=== PATIENT | male | born 1960 | race Caucasian/White ===

== ENCOUNTER 2021-09-15 09:45 | Emergency (ER) | payer BC ==
[2021-09-15 09:50] VITALS: TEMP 98; BMI 32.6
[2021-09-15] MEDS ORDERED: BEBTELOVIMAB (EUA) 175 MG/2 ML VIAL IVPUSH ONE (10:28)
[2021-09-15 11:50] VITALS: BP 138/84; PULSE 80
[2021-09-15 12:02] LABS: HEMATOCRIT 42.2 % (35.4-49); HEMOGLOBIN 13.6 GM/dL (11.7-16.9); MCH 24.7 pg (25.7-33.7); MCHC 32.2 g/dl (32.0-35.9); MEAN CELL VOLUME 76.6 fl (80-96); MEAN PLT VOLUME 8.4 fl (7.5-11.1); PLATELET COUNT 159 10^3/uL (134-434); RBC 5.51 M/mm3 (4.00-5.60); RDW 14.4 % (11.9-15.9); WHITE BLOOD COUNT 4.3 K/mm3 (4.0-10.0)
[2021-09-15 12:08] LABS: INR 1.31 (0.83-1.09); PROTHROMBIN TIME (PATIENT) 15.1 SEC (9.7-13.0)
[2021-09-15 12:11] LABS: ACTIVATED PTT 27.4 SECONDS (25.2-36.5)
[2021-09-15 12:18] LABS: ALBUMIN 3.7 g/dl (3.4-5.0); BLOOD UREA NITROGEN 15.5 mg/dL (7-18)
[2021-09-15 12:21] LABS: CREATININE 0.9 mg/dL (0.55-1.3)
[2021-09-15 12:22] LABS: BILIRUBIN,DIRECT 0.1 mg/dL (0.0-0.2)
[2021-09-15 12:23] LABS: BILIRUBIN,TOTAL 0.4 mg/dL (0.2-1); TOT PROT 7.6 g/dl (6.4-8.2)
[2021-09-15 14:15] LABS: ANISOCYTOSIS 1+
[2021-09-15 14:16] LABS: PLATELET ESTIMATE NORMAL
== END 2021-09-15 11:50 | disposition home or self-care (01) ==
LOC: JER 09:45
PROC: 3E033GC Introduction of Other Therapeutic Substance into Peripheral Vein, Percutaneous Approach (ICD-10-PCS; principal; 2021-09-15)
DX: U07.1 COVID-19 (principal)
CPT/HCPCS: 36415; 80053; 82248; 82728; 83615; 85025; 85379; 85610; 85730; 86140; 99284-25; Q0222

== ENCOUNTER 2023-02-12 04:36 | Day surgery (SDC) | payer BC ==
[2023-02-09 11:48] VITALS: BMI 35.5
[2023-02-12 09:50] VITALS: TEMP 98.6
[2023-02-12 10:23] VITALS: BP 123/79; PULSE 63; RESP 20
== END 2023-02-12 10:27 | disposition home or self-care (01) ==
LOC: JASU-ENDO 04:36
PROVIDERS: ATTEND Internal Medicine Gastroenterology
PROC: 0DBK8ZX Excision of Ascending Colon, Via Natural or Artificial Opening Endoscopic, Diagnostic (ICD-10-PCS; 2023-02-12)
PROC: 0DBP8ZX Excision of Rectum, Via Natural or Artificial Opening Endoscopic, Diagnostic (ICD-10-PCS; 2023-02-12)
PROC: 0DBH8ZX Excision of Cecum, Via Natural or Artificial Opening Endoscopic, Diagnostic (ICD-10-PCS; 2023-02-12)
PROC: 0DB98ZX Excision of Duodenum, Via Natural or Artificial Opening Endoscopic, Diagnostic (ICD-10-PCS; 2023-02-12)
PROC: 0DB78ZX Excision of Stomach, Pylorus, Via Natural or Artificial Opening Endoscopic, Diagnostic (ICD-10-PCS; 2023-02-12)
PROC: 0DB68ZX Excision of Stomach, Via Natural or Artificial Opening Endoscopic, Diagnostic (ICD-10-PCS; 2023-02-12)
PROC: 0DB48ZX Excision of Esophagogastric Junction, Via Natural or Artificial Opening Endoscopic, Diagnostic (ICD-10-PCS; 2023-02-12)
PROC: 0DBC8ZX Excision of Ileocecal Valve, Via Natural or Artificial Opening Endoscopic, Diagnostic (ICD-10-PCS; principal; 2023-02-12 09:00)
DX: Z12.11 Encounter for screening for malignant neoplasm of colon (principal); D12.0 Benign neoplasm of cecum; D17.5 Benign lipomatous neoplasm of intra-abdominal organs; K29.50 Unspecified chronic gastritis without bleeding; B96.81 Helicobacter pylori [H. pylori] as the cause of diseases classified elsewhere; K63.5 Polyp of colon; K62.1 Rectal polyp; K57.30 Diverticulosis of large intestine without perforation or abscess without bleeding; K64.8 Other hemorrhoids; K21.00 Gastro-esophageal reflux disease with esophagitis, without bleeding; K44.9 Diaphragmatic hernia without obstruction or gangrene